=== PATIENT | male | born 1945 | race Caucasian/White ===

== ENCOUNTER 2019-09-02 07:53 | Inpatient (IN) ==
[2019-08-18 17:19] LABS: Blood Urea Nitrogen 21 mg/dl (8-23); Calcium 9.2 mg/dl (8.6-10.4); Carbon Dioxide 26 mmol/L (22-30); Chloride 100 mmol/L (96-108); Glomerular Filtration Rate 65; Glucose 91 mg/dL (70-105)
[2019-08-18 17:24] LABS: Basophils # (Auto) 0 K/mcL (0.0-0.3); Basophils % (Auto) 0.9 % (0.0-2.0); Eosinophils # (Auto) 0.1 K/mcL (0.0-0.7); Eosinophils % (Auto) 1.2 % (0.0-7.0); Lymphocytes # (Auto) 1.5 K/mcL (1.5-4.8); Lymphocytes % (Auto) 30.9 % (15.5-49.0); Mean Cell Volume 91.7 fL (80.0-100.0); Mean Corpuscular HGB Conc 35.6 g/dL (31.0-36.0); Mean Platelet Volume 8.7 fL (7.4-10.4); Monocytes # (Auto) 0.4 K/mcL (0.1-0.9); Platelet Count 178 K/mcL (140-440); RBC 4.59 M/mcL (4.50-5.90); Red Cell Distribution Width 12.9 % (11.5-14.5); WBC 4.8 K/mcL (4.5-11.0)
[~2019-09-02 07:53] MED LIST: CELECOXIB 200 MG CAPSULE PO SCH; IPRATROPIUM/ALBUTEROL 3 ML AMPUL.NEB NEB PRN; PREGABALIN 75 MG CAPSULE PO SCH; SCOPOLAMINE 1 PATCH PATCH TOPICAL PRN; ceFAZolin 2 GM in DEXTROSE 5% IN WATER 50 ML IV SCH; oxyCODONE 10 MG TAB.ER.12H PO SCH
[2019-09-02] MEDS ORDERED: GENTAMICIN SULFATE 800 MG/20 ML VIAL IR ONE (10:17)
--- NOTE | 2019-09-02 12:32 | Brief Operative Note ---
Date of procedure: 09/02/19 Pre-op diagnosis: right shoulder osteoarthritis, biceps tendonitis Post-op diagnosis: same Procedure: right reverse tsa, biceps tenodesis Grafts/Implants: Yes Anesthesia: GETA Complications: none Surgeon: Saurabh Schuler Armored Machine Operator: Dyan You Estimated blood loss (cc): 150 Specimens Removed/Pathology: none sent Condition: stable Disposition: PACU
[2019-09-02] MEDS ORDERED: MAGNESIUM HYDROXIDE 30 ML ORAL.SUSP PO PRN (12:33)
[2019-09-02] MEDS ORDERED: KETOROLAC 15 MG/ML VIAL IV PRN (12:33)
[2019-09-02] MEDS ORDERED: FLEETS ADULT ENEMA PR PRN (12:33)
[2019-09-02] MEDS ORDERED: POLYETHYLENE GLYCOL 3350 17 GM PACKET PO PRN (12:33)
[2019-09-02] MEDS ORDERED: TRANEXAMIC ACID 1,000 MG/10 ML VIAL IV SCH (12:33)
[2019-09-02] MEDS ORDERED: BISACODYL 10 MG SUPP.RECT PR PRN (12:33)
[2019-09-02] MEDS ORDERED: ONDANSETRON 4 MG ODT TABLET SL PRN (12:33)
[2019-09-02] MEDS ORDERED: ONDANSETRON 4 MG/2 ML VIAL IV PRN (12:33)
[2019-09-02] MEDS ORDERED: BENZOCAINE/MENTHOL 1 LOZENGE PO PRN ×2 (12:33→13:07)
[2019-09-02] MEDS ORDERED: oxyCODONE/APAP 5/325MG TABLET PO PRN (12:33)
[2019-09-02] MEDS ORDERED: METHOCARBAMOL 750 MG TABLET PO PRN (12:33)
--- NOTE | 2019-09-02 12:33 | Discharge Summary ---
Ortho Discharge - TSA - Patient Instructions Diet: Regular Diet Activity: non weight bearing Total Shoulder Protocol: Leave immobilizer in place except for bathing and ROM. Abduction pillow. Continue to wear sling until seen by physician. Codman Pendulum : These exercises use momentum produced by your body to move your shoulder joint. Bend your knees and shift your weight to your front leg, then back, allowing your arm to swing in the same directions. Using the same technique, alternately shift your weight between your right and left legs, allowing your arm to swing from side to side. These exercises are also performed in counterclockwise and clockwise circular motions. Typically these exercises are performed several times per day, for a set number repetitions or minutes, such as 20 times in a row or 5 minutes at a time. Dressing Care: May shower in 2 days - Follow Up Plan Follow Up Appointments: Dyan You PA-C [Physician Hotel Operations Manager] - 09/15/19 1:40 pm Disposition: Home, Self-Care Prognosis: Good Rehab Potential: Good I certify that the patient requires SNF services: No Overall status at discharge: patient is progressing back to baseline
[2019-09-02] MEDS ORDERED: NALOXONE HCL 0.4 MG/ML VIAL IV PRN (13:07)
[2019-09-02] MEDS ORDERED: METOPROLOL TARTRATE 5 MG/5 ML VIAL IV PRN (13:07)
[2019-09-02] MEDS ORDERED: METHOCARBAMOL 1,000 MG/10 ML VIAL IV PRN (13:07)
[2019-09-02] MEDS ORDERED: ACETAMINOPHEN 1,000 MG/100 ML BOTTLE IV ONE (13:07)
[2019-09-02] MEDS ORDERED: LABETALOL 5 MG/ML ML IV PRN (13:07)
[2019-09-02] MEDS ORDERED: fentaNYL 100 MCG/2 ML VIAL IV PRN (13:07)
[2019-09-02] MEDS ORDERED: LACTATED RINGERS 250 ML IV PRN (13:07)
[2019-09-02] MEDS ORDERED: FLUMAZENIL 0.1 MG/ML ML IV PRN (13:07)
[2019-09-02] MEDS ORDERED: IPRATROPIUM/ALBUTEROL 3 ML AMPUL.NEB NEB PRN (13:07)
[2019-09-02] MEDS ORDERED: LACTATED RINGERS 1,000 ML IV SCH (13:15)
--- NOTE | 2019-09-02 13:58 | XRay Report ---
CLINICAL INFORMATION: Post-OP Total Shoulder COMPARISON: None. FINDINGS: Right total shoulder prostheses is anatomically aligned. No osseous abnormality. Soft tissue swelling as expected. IMPRESSION: Negative Interpreted and Authenticated by: Saurabh Cao 09/02/19
--- NOTE | 2019-09-02 14:15 | Operative Note ---
DATE OF OPERATION: 09/02/2019 PREOPERATIVE DIAGNOSES: 1. Right shoulder osteoarthritis. 2. Right shoulder proximal biceps tendonitis. POSTOPERATIVE DIAGNOSES: 1. Right shoulder osteoarthritis. 2. Right shoulder proximal biceps tendonitis. PROCEDURE: 1. Right total shoulder arthroplasty. 2. Right shoulder soft tissue biceps tenodesis. SURGEON: Lee Schuler M.D. FLIGHT NURSE SURGEON: Dyan You PA-C. This provider's expertise and technical skill were required throughout the case. The PA assisted with preoperative coordination, intraoperative retraction, wound closure, dressing and splint application, as well as postoperative documentation and care coordination. ANESTHESIA: General. ESTIMATED BLOOD LOSS: 100 mL COMPLICATIONS: None noted. SPECIMENS REMOVED: None. DRAINS: None. IMPLANTS: DePuy CMW2 bone cement 20 grams x1, DePuy global anchor peg glenoid Premerion cross-linked polyethylene size 48, DePuy global unite anatomic proximal body 135 degrees size 12, DePuy global unite Porocoat standard stem size 12, DePuy global unite eccentric humeral head size 48 x 21. INDICATIONS: The patient has had a longstanding history of worsening pain in the shoulder that has failed conservative treatment. Radiographs have confirmed advanced degenerative joint disease. After a long discussion about treatment options, the patient elected to proceed with a total shoulder arthroplasty. The risks and benefits were discussed with the patient in detail including, but not limited to, the risks of anesthesia, problems with the heart or lungs related to anesthesia, infection, compromise or injury to the nerves and blood vessels, deep venous thrombosis, pulmonary embolism, pneumonia, continued pain after surgery, worsening pain or symptoms after surgery, swelling, loss of motion, instability, fracture, arm length discrepancy, and need for repeat surgery. DESCRIPTION OF PROCEDURE: The patient was seen in the pre-anesthesia waiting room where all questions were answered and the correct side and site were identified and marked. The patient was transferred to the operating room and administered the anesthetic and given preoperative antibiotics. A timeout was then called. The patient was placed in the modified beach chair position with all prominences well padded. The extremity was prepped and draped from the fingers up to the neck. A standard deltopectoral skin incision was created. Dissection was carried down to the deltopectoral groove and the cephalic vein was isolated medially and retracted laterally with the deltoid. Retractors were placed and the coracobrachialis was split up to the coracoacromial ligament allowing retraction of the conjoined tendon. We split the subscapularis 1 cm medial to the bicipital groove and extended the split into the rotator interval. This was tagged for later repair. The biceps was cut and a soft tissue tenodesis was performed into the anterior shoulder with #2 FiberWire. A capsular release was performed in a posterior subperiosteal direction along the humerus. The humeral head was then dislocated. Osteophytes were removed around the humeral neck and a capsular release was performed. Attention was then turned to the glenoid. Retractors were placed for optimal visualization and the labrum was excised in its entirety. A centralizing Steinmann pin was placed just into the posterior inferior quadrant in a standard fashion. We reamed over the pin to remove all the cartilage and get to a good base for the prosthesis. The drill was then placed over for the central peg. The glenoid was sized and surface was inspected to confirm conformity. The template base-plate was used to drill the three additional pegs, anchoring each with the anti-rotation peg. All bleeding was stopped with epinephrine soaked sponges. Next, we then cemented the anchor peg glenoid with DBX bone paste placed around the anchor peg and Palacos cement in the three additional peg holes. We allowed the cement to harden and checked the stability and placement of the glenoid. Attention was then turned back to the humerus. The humeral head was sized and version of the head was matched. We placed the guide evaluating the quadrants and drilled a pin through the center of the head exiting the lateral cortex of the proximal humerus. We then reamed the humeral head with appropriate depth. The bone quality was adequate. The humeral head trial was placed and fit appropriately. The cruciate punch was placed into the drilled canal. The press fit humeral prosthesis was impacted into place. A final check confirmed adequate motion, tension, and stability. We irrigated with 3 liters of antibiotic saline and closed the subscapularis with # 2 FiberWire. We irrigated again and closed the deltopectoral interval with several # 0 Vicryl figure of eight sutures. The subcutaneous layer was closed with 2-0 Vicryl and the skin was closed with Dermabond. A sterile pressure dressing was applied and the patient was placed into an abduction sling. All needle and sponge counts were correct. The patient was transferred to the recovery room in stable condition. YURI:wally Job ID: [id number] Doc ID: [id number] Lee Schuler MD
[2019-09-02] MEDS: 0.9 % SODIUM CHLORIDE 1,000 ML IV SCH ×2 (14:27→22:17)
[2019-09-02] MEDS: 0.9 % SODIUM CHLORIDE 10 ML SYRINGE IV SCH ×2 (14:29→22:18)
[2019-09-02] MEDS ORDERED: SENNOSIDES 1 TABLET PO SCH (21:00)
[2019-09-02] MEDS: DOCUSATE SODIUM 100 MG CAPSULE PO SCH (22:17)
[2019-09-02] MEDS: ceFAZolin 1 GM VIAL IV SCH (22:18)
[2019-09-03] MEDS: ceFAZolin 1 GM VIAL IV SCH (03:05)
[2019-09-03] MEDS: 0.9 % SODIUM CHLORIDE 10 ML SYRINGE IV SCH (05:02)
[2019-09-03] MEDS: 0.9 % SODIUM CHLORIDE 1,000 ML IV SCH (05:13)
[2019-09-03 07:07] LABS: Hematocrit 40.7 % (41.0-55.0); Hemoglobin 13.7 g/dL (13.5-16.5)
--- NOTE | 2019-09-03 07:52 | Orthopedic Progress Note ---
Subjective Patient information: Note initiated : 09/03/19 at 7:51 am Service Date, if different from initiated Date: [] Patient: Harinder Dutta 74 y/o M admitted on 09/02/19 for Right Total Shoulder with Open Reinsertion. Chief Complaint: [] Interval history: doing well. no complaints Objective Vital signs: Vital Signs Temp Pulse Pulse Resp BP Pulse Ox 09/03/19 03:40 79 09/03/19 03:20 98.4 F 16 132/80 94 09/03/19 00:00 80 09/02/19 23:36 98.0 F 80 12 126/75 93 09/02/19 20:00 83 09/02/19 19:35 98.0 F 83 12 133/80 93 09/02/19 19:00 82 97 09/02/19 16:00 97.7 F 65 18 143/81 93 09/02/19 15:20 73 18 142/79 93 09/02/19 14:50 70 16 134/80 92 09/02/19 14:35 75 16 138/84 92 09/02/19 14:20 77 16 142/80 92 09/02/19 14:05 72 16 138/82 94 09/02/19 13:50 96.9 F L 74 18 134/77 94 09/02/19 13:36 99.0 F 76 22 130/68 93 09/02/19 13:25 97.8 F 76 13 141/76 94 09/02/19 13:10 75 17 156/77 100 09/02/19 13:05 81 14 154/89 100 09/02/19 13:00 85 13 163/94 100 09/02/19 12:56 97.3 F 81 12 130/74 99 09/02/19 08:00 98.0 F 66 18 150/84 98 09/02/19 07:53 98.0 F 66 18 150/84 98 Intake and Output 09/02/19 09/03/19 09/03/19 21:59 05:59 13:59 Intake Total 1650 2989 Output Total 1050 1500 Balance 600 1489 Intake: IV 150 1839 Sodium Chloride 0.9% 1,000 ml @ 1839 125 mls/hr IV .Q8H [facility] Rx#: [id number] Ancef 2 gm In Dextrose 5% in 50 Water 50 ml @ 100 mls/hr IV PREOP RO Rx#:[id number] Oral 1500 1150 Output: Void Amount 1050 1500 Other: Meal Dinner Percent of Meal Consumed 100% Feeding Ability Independent Urine Appearance Clear Clear Urine Color Bright Yellow Pale Urine Odor Normal Normal Weight 171 lb 8 oz Intake & Output: Intake & Output 09/02/19 09/03/19 09/03/19 21:59 05:59 13:59 Intake Total 1650 2989 Output Total 1050 1500 Balance 600 1489 Weight 171 lb 8 oz Intake: IV 150 1839 Sodium Chloride 0.9% 1,000 ml @ 1839 125 mls/hr IV .Q8H RO Rx#: [id number] Ancef 2 gm In Dextrose 5% in 50 Water 50 ml @ 100 mls/hr IV PREOP RO Rx#:[id number] Oral 1500 1150 Output: Void Amount 1050 1500 Other: Meal Dinner Percent of Meal Consumed 100% Feeding Ability Independent Urine Appearance Clear Clear Urine Color Bright Yellow Pale Urine Odor Normal Normal Incision: Yes healing Incision clean and dry: Yes Dressing: Yes clean, Yes dry, Yes intact Weight bearing status: non Neurological exam IM: Yes alert, Yes normal gait, Yes oriented X3, Yes motor sensory intact, Yes neurovascular intact Extremities exam IM: No calf tenderness, Yes Foot pink and warm, Yes neurovascular intact - Labs CBC & BMP: 09/03/19 05:50 08/18/19 13:43 Labs: 09/03/19 08/18/19 05:50 13:43 Hgb 13.7 15.0 Hct 40.7 L 42.0 Assessment and Plan (1) Osteoarthritis, shoulder pod 1 s/p tsa nwb sling pain control home today Status: Acute
[2019-09-03] MEDS: DOCUSATE SODIUM 100 MG CAPSULE PO SCH (08:54)
[2019-09-03] MEDS ORDERED: amLODIPine 5 MG TABLET PO SCH (09:00)
[2019-09-03] MEDS ORDERED: GLYCOPYRROLATE 0.2 MG/ML VIAL IV ONE (11:00)
[2019-09-03] MEDS ORDERED: LIDOCAINE HCL/PF 100 MG/5 ML SYRINGE IV ONE (11:00)
[2019-09-03] MEDS ORDERED: fentaNYL 100 MCG/2 ML VIAL IV ONE (11:00)
[2019-09-03] MEDS ORDERED: SUCCINYLCHOLINE 20 MG/ML ML IV ONE (11:00)
[2019-09-03] MEDS ORDERED: PHENYLEPHRINE 10 MG/ML VIAL IV ONE (11:00)
[2019-09-03] MEDS ORDERED: KETAMINE 100 MG/ML ML IV ONE (11:00)
[2019-09-03] MEDS ORDERED: TRANEXAMIC ACID 1,000 MG/10 ML VIAL IV ONE (11:00)
[2019-09-03] MEDS ORDERED: PROPOFOL 200 MG/20 ML VIAL IV ONE (11:00)
[2019-09-03] MEDS ORDERED: ONDANSETRON 4 MG/2 ML VIAL IV ONE (11:00)
[2019-09-03] MEDS ORDERED: ROPIVACAINE HCL/PF 20 ML VIAL IJ ONE (11:00)
[2019-09-03] MEDS ORDERED: ePHEDrine 50 MG/ML AMPUL IV ONE (11:00)
== END 2019-09-03 11:35 | disposition home or self-care (01) | DRG 483 ==
LOC: MEDSUR 07:53
PROVIDERS: ADMIT Orthopaedic Surgery Sports Medicine; ATTEND Orthopaedic Surgery Sports Medicine